=== PATIENT | female | born 2000 | race Two or more races ===

== ENCOUNTER 2021-06-01 11:54 | Emergency (ER) | payer MEDICAID, OTHER ==
[~2021-06-01] VITALS: Ht 165.1 cm; Wt 77.1 kg
[2021-06-01 11:54] VITALS: BP 120/62
== END 2021-06-01 17:25 | disposition left against medical advice (07) ==
LOC: ER 11:56
DX: Z04.1 Encounter for examination and observation following transport accident (principal); Z53.21 Procedure and treatment not carried out due to patient leaving prior to being seen by health care provider
CPT/HCPCS: 72040; 72100; 73030